=== PATIENT | female | born 1980 | race Caucasian/White ===

== ENCOUNTER 2016-06-19 15:34 | Emergency (ER) | payer OTHER ==
--- NOTE | ~2016-06-19 | ER ---
PATIENT'S NAME: KARINA [facility] AGE: 35 Y [address] ROOM: [place] [address] LOCATION: ED ADMIT DATE: 06/19/2016 ER/Outpatient Report DISCHARGE DATE: 06/19/2016 FAMILY PHYSICIAN: Physician, Unknown ATTENDING PHYSICIAN: Jane Mittal Time of Arrival: 1534 hours. Time of Evaluation: 1608 hours. IDENTIFICATION: A 35-year-old female. CHIEF COMPLAINT: Back pain. HISTORY OF PRESENT ILLNESS: The patient this morning when she woke up, developed some pain across her low back, worse with movement and bending. 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 She has a prior history of lumbar degenerative disk disease, and had a lumbar decompression and fusion per Dr. Marie in August of 2012. Pain radiates a little bit down the posterior right leg, just about the mid thigh level. No bowel or bladder problems other than she said she has had some increased frequency of urination. PAST MEDICAL HISTORY: ALLERGIES: KEFLEX, PERCOCET, AND LEXAPRO. CURRENT MEDICATIONS: 1. Adderall XR. 2. Ibuprofen. 3. Xanax. MEDICAL PROBLEMS: Lupus, ADHD, OCD, and lumbar degenerative disk disease. PRIOR SURGERIES: L4-L5 fusion and lumbar decompression, cholecystectomy, and tubal ligation. 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 The patient is . Tobacco use, 1 pack per day for 16 years. Alcohol use, denies. Drug use, denies. PATIENT'S NAME: [facility]ARINA [facility] AGE: 35 Y [address] ROOM: [place] [address] LOCATION: ED ADMIT DATE: 06/19/2016 ER/Outpatient Report DISCHARGE DATE: 06/19/2016 FAMILY PHYSICIAN: Physician, Unknown ATTENDING PHYSICIAN: Jane Mittal Her primary care physician is in [place]. REVIEW OF SYSTEMS: All systems reviewed and negative other than what is noted in the HPI. FAMILY HISTORY: No pertinent family history. PHYSICAL EXAMINATION: VITAL SIGNS: Height 5 feet 6 inches, weight 89.5 kg. Blood pressure 124/82, pulse 99, respirations 16, temperature 98, and saturations 100% on room air. GENERAL: A 35-year-old female, in mild distress. Pain 7/10. HEENT: Unremarkable. LUNGS: Clear to auscultation. HEART: Regular rate and rhythm. ABDOMEN: Soft, nondistended, nontender. SKIN: [place], warm, and dry. No lesions or rashes noted. NEURO: The patient is alert and oriented x4. Cranial nerves 2 through 12 grossly intact. Motor strength 5/5 throughout. Sensation is intact to light touch. BACK: Tender to palpation in the right lumbar paraspinal muscles. No erythema. She does have some palpable muscle spasm. Decreased range of motion secondary to pain. Equivocal straight leg raise bilaterally. With straight leg raise, she does complain of a little bit of pain in her low back on the right side. EMERGENCY DEPARTMENT COURSE: The patient was given Valium 2 mg orally. Hemoglobin 15.2, hematocrit 45.3, platelets 308, white count 12 with normal differential. Sedimentation rate 5. CRP 0.40. Chemistry panel is unremarkable. Her creatinine is normal. GFR is greater than 60. UA negative and urine hCG negative. The patient was given Toradol 60 mg IM. Her pain improved from a 7 to a 4. IMPRESSION: Acute low back pain. PLAN: No lifting. Rest. Tylenol or ibuprofen for pain. Ice or heat. Valium 2 mg 1/2 to 1 tablet q.8 hours p.r.n. spasm, dispensed 10 with 0 refills, and follow up with Dr. Marie in 1 to 3 days, follow up sooner if any problems or concerns. I did give her a note for work to remain off work until 06/23 and then to return as tolerates. The patient understands and agrees, and all questions have been answered. PATIENT'S NAME: GEOVANNA COLLINS [facility] AGE: 35 Y [address] ROOM: [place] [address] LOCATION: ED ADMIT DATE: 06/19/2016 ER/Outpatient Report DISCHARGE DATE: 06/19/2016 FAMILY PHYSICIAN: Physician, Unknown ATTENDING PHYSICIAN: Jane Mittal MD RENATO JO/jolie /[id number] d: 06/19/16 232 t: 07/03/16 0701, OUTPATIENT REPORT
[2016-06-19 16:42] LABS: BILIRUBIN URINE NEGATIVE (NEGATIVE); BLOOD URINE NEGATIVE /UL (NEGATIVE); GLUCOSE URINE NEGATIVE (NEGATIVE); KETONE URINE NEGATIVE (NEGATIVE); LEUKOCYTES URINE NEGATIVE /UL (NEGATIVE); NITRITE URINE NEGATIVE (NEGATIVE); PROTEIN URINE NEGATIVE (NEGATIVE); SPEC GRAVITY URINE 1.015 (1.003-1.035); UROBILINOGEN URINE NORMAL (NORMAL)
[2016-06-19 16:43] LABS: COLOR URINE YELLOW (YELLOW); TURBIDITY URINE CLEAR (CLEAR)
[2016-06-19 16:48] LABS: BASOPHIL # 0.1 K/uL (0.0-0.2); BASOPHIL % 0.5 %; EOSINOPHIL # 0.4 K/uL (0.0-0.5); EOSINOPHIL % 3.3 %; HEMATOCRIT 45.3 % (33.0-46.0); HEMOGLOBIN 15.2 g/dL (11.0-15.0); IMMATURE GRANULOCYTE # 0.1 K/uL (0.0-0.3); IMMATURE GRANULOCYTE % 0.4 %; LYMPHOCYTE # 4.6 K/uL (0.8-4.0); LYMPHOCYTE % 38.6 %; MCH 29.6 pg (27.0-34.0); MCHC 33.6 gm/dL (32.0-36.5); MCV 88.3 fl (83.0-98.0); MONOCYTE # 0.8 K/uL (0.0-1.0); MONOCYTE % 6.3 %; MPV 11.1 fl (9.4-12.4); NEUTROPHIL # (ANC) 6.1 K/uL (1.8-7.8); NEUTROPHIL % 50.9 %; NRBC % 0 /100WBC (0-0.00); PLATELET COUNT 308 K/uL (150-450); RBC 5.13 M/uL (3.50-5.50); RDW-CV 12.9 % (11.9-14.6)
[2016-06-19 17:00] LABS: ALBUMIN 4.1 gm/dL (3.5-5.0); ALK PHOS 85 IU/L (33-138); ALT 24 IU/L (12-78); ANION GAP 11.1 (10.0-19.0); AST 16 IU/L (10-40); BLOOD UREA NITROGEN 8 mg/dL (6-24); CALCIUM 9.2 mg/dL (8.5-10.5); CHLORIDE 104 mMol/L (96-110); CO2 26 mMol/L (22-32); CREATININE 0.7 mg/dL (0.5-1.1); ESTIMATED GFR (MDRD EQUATION) > 60; POTASSIUM 4.1 mMol/L (3.7-5.1); SODIUM 137 mMol/L (135-145); TOTAL BILIRUBIN 0.3 mg/dL (0.0-1.5); TOTAL PROTEIN 7.7 g/dL (6.0-8.4)
== END 2016-06-19 17:38 | disposition disaster alternative care site (69) ==
LOC: GMED 15:34
PROVIDERS: Family Medicine
DX: M54.5 Low back pain (principal); F90.9 Attention-deficit hyperactivity disorder, unspecified type; F42.9 Obsessive-compulsive disorder, unspecified; F17.210 Nicotine dependence, cigarettes, uncomplicated; Z88.1 Allergy status to other antibiotic agents; Z88.5 Allergy status to narcotic agent; Z88.8 Allergy status to other drugs, medicaments and biological substances; Z79.899 Other long term (current) drug therapy; Z98.1 Arthrodesis status; Z90.49 Acquired absence of other specified parts of digestive tract
CPT/HCPCS: J1885

== ENCOUNTER 2016-06-21 21:08 | Emergency (ER) | payer OTHER ==
--- NOTE | ~2016-06-21 | ER ---
PATIENT'S NAME: GEOVANNA COLLINS [facility] AGE: 35 Y [address] ROOM: [place] [address] LOCATION: [facility] ADMIT DATE: 06/21/2016 ER/Outpatient Report DISCHARGE DATE: 06/21/2016 FAMILY PHYSICIAN: Physician, Unknown ATTENDING PHYSICIAN: Paolo Gonzales Admission date and time documented in medical record. I saw the patient at 2155 hours. CHIEF COMPLAINT: Low back pain, right greater than left. HISTORY OF PRESENT ILLNESS: The patient is a 35-year-old female, who went to bed 5-6 days ago, woke up the next morning with low back pain, mainly on the right side. Had a little bit of sciatic into the right leg. She had previous laminectomy and fusion involving L4-L5. Denies any urinary symptomatology other than some frequency. Her urine was clear 3-4 days ago. No bowel dysfunction. No chest pain or shortness of breath. No recent fall or trauma. No cold, cough, flus, fever, chills, sweats. No abdominal pain, nausea, vomiting. HOME MEDICATIONS: See attached medication list. ALLERGIES: 1. LEXAPRO. 2. KEFLEX. 3. PERCOCET. SOCIAL HISTORY: The patient smokes a pack of cigarettes per day and nondrinker. SIGNIFICANT PAST MEDICAL HISTORY: 1. ADHD. 2. OCD. 3. Lumbar degenerative disk disease. 4. Lupus. 5. Tobacco abuse. OPERATIONS: 1. L4-L5 fusion with lumbar decompression. 2. Cholecystectomy. 3. Tubal ligation. REVIEW OF SYSTEMS: PATIENT'S NAME: GEOVANNA COLLINS [facility] AGE: 35 Y [address] ROOM: [place] [address] LOCATION: [facility] ADMIT DATE: 06/21/2016 ER/Outpatient Report DISCHARGE DATE: 06/21/2016 FAMILY PHYSICIAN: Physician, Unknown ATTENDING PHYSICIAN: Paolo Gonzales All systems reviewed by me are negative with the exception of those discussed in the history of present illness. PHYSICAL EXAMINATION: VITAL SIGNS: Temperature 97.5 tympanic, pulse 95, respirations 16, blood pressure 125/58, O2 saturation on room air 100%. ABDOMEN: On examination, abdomen is soft, nondistended, nontender. Good bowel tones. No organomegaly or abnormal mass palpable. Pelvis stable and nontender. BACK: The patient has tenderness on the right paraspinal muscles around L3-L4 area. No buttock pain in the sciatic notch. Straight leg raising negative. NEUROVASCULAR: Intact. Pulse intact. Strength intact. DIAGNOSTIC DATA: Plain film of the lumbar spine showed no disruption of the screws or plate. No subluxation. No acute fracture. We will review all plain films with the radiologist. IMPRESSION: Low back pain right greater than left, etiology uncertain. PLAN: The patient is to continue her Valium. We will start her on Medrol Dosepak take as directed and physical therapy if needed. She is going to follow up with Dr. Marie, critical care nurse specialist sometime this coming week. I encouraged her to proceed in that direction. MD EMMIE FELIZ/modl /[id number] d: 06/21/16 2351 t: 06/22/16 1813, OUTPATIENT REPORT
== END 2016-06-21 22:33 | disposition disaster alternative care site (69) ==
LOC: GMED 21:08
DX: M54.5 Low back pain (principal); F17.210 Nicotine dependence, cigarettes, uncomplicated; Z88.8 Allergy status to other drugs, medicaments and biological substances; Z90.49 Acquired absence of other specified parts of digestive tract; Z98.51 Tubal ligation status

== ENCOUNTER 2016-09-22 18:19 | Emergency (ER) | payer OTHER ==
--- NOTE | ~2016-09-22 | ER ---
PATIENT'S NAME: GEOVANNA COLLINS [facility] AGE: 36 Y [address] ROOM: [place] [address] LOCATION: ED ADMIT DATE: 09/22/2016 ER/Outpatient Report DISCHARGE DATE: 09/22/2016 FAMILY PHYSICIAN: PHYSICIAN, NO ATTENDING PHYSICIAN: Lowell Lizarraga CHIEF COMPLAINT: Chest pain. HISTORY OF PRESENT ILLNESS: The patient presents for evaluation of chest pain. The pain started around 2:00 or 2:30. It started a kind of on the left side, radiated up through her shoulder, and it is now a kind of in her arm. It is described as a dull pressure. This does not feel like her prior reflux. She states that she is a smoker and has an extensive family history. She also has lupus and anxiety issues. 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 She has not had any significant changes to her weight or sleeping recently but has noted some bloating. She denies any other issues at this time. She states that she thinks she is confused because she is just having some trouble recalling things that she feels like it should be easier for her. No other acute concerns. PAST MEDICAL HISTORY: Documented on the record and reviewed by me. SOCIAL HISTORY: Documented on the record and reviewed by me. MEDICATIONS: Documented on the record and reviewed by me. ALLERGIES: DOCUMENTED ON THE RECORD AND REVIEWED BY ME. REVIEW OF SYSTEMS: All systems reviewed and negative except as noted in the HPI. PHYSICAL EXAMINATION: VITAL SIGNS: Blood pressure 139/63, pulse 100, respiratory rate is 20, temperature 98.2, SpO2 is 100% on room air. Pain is 4/10. GENERAL: An age-appropriate female. No obvious pain or distress. Resting comfortably upright on the exam table. NEURO: The patient is awake and alert. GCS is 15. No focal deficits. No asymmetry. Normal cognition. PATIENT'S NAME: GEOVANNA COLLINS [facility] AGE: 36 Y [address] ROOM: [place] [address] LOCATION: [facility] ADMIT DATE: 09/22/2016 ER/Outpatient Report DISCHARGE DATE: 09/22/2016 FAMILY PHYSICIAN: PHYSICIAN, NO ATTENDING PHYSICIAN: Lowell Lizarraga HEENT: Normocephalic, atraumatic. Eyes are PERRL. Oropharynx is clear. NECK: Supple. Trachea is midline. CHEST/HEART: Regular rate and rhythm with no murmurs. LUNGS: Clear to auscultation bilateral with no rhonchi, wheezes, or rales. ABDOMEN: Soft, nontender, and nondistended. No rebound. No guarding. No tenderness. Bowel sounds are normal. BACK: Normal to inspection and palpation. EXTREMITIES: Warm and well perfused. No obvious abnormalities. SKIN: Clean, dry, and intact. No erythema. LABORATORY DATA AND X-RAYS: Chest x-ray is unremarkable per my review. EKG reveals sinus tachycardia, rate of 100 with otherwise normal intervals and axis. No signs of acute ischemia. Grossly unchanged morphologies compared to prior EKG from 06/25/2012. HCG below threshold. CMS without appreciable abnormality. Magnesium 2.1. CPK, CK-MB, and troponin all within appropriate threshold. CBC with slightly elevated white count of 12.7, otherwise unremarkable. INR is below 1. D-dimer 0.38. IMPRESSION: Atypical chest pain. EMERGENCY DEPARTMENT COURSE: The patient was seen and evaluated. Cardiac and PE evaluation was undertaken. X-ray reviewed and excludes pneumonia, pneumothorax as a cause. Not consistent with dissection or Boerhaave syndrome. She was given a GI cocktail, which did not help. Two nitroglycerin did improve her pain to barely noticeable. Her blood pressure was a little bit less, so she was given morphine and Zofran, which helped completely eliminate her pain. I offered a 2-hour rule out to help ensure extremely low risk of acute coronary event. She and her discussed this and have declined at this time. They will return immediately if there is anything worsening. Recommend that the patient have the next 24 hours off to just kind of relax before she resumes her daily routine. She will need to follow up with her primary care provider preferably within the next 14 days for re-evaluation. All questions answered. The patient discharged in good condition. MD CRISTIANA LACY/jolie PATIENT'S NAME: GEOVANNA COLLINS [facility] AGE: 36 Y [address] ROOM: [place] [address] LOCATION: [facility] ADMIT DATE: 09/22/2016 ER/Outpatient Report DISCHARGE DATE: 09/22/2016 FAMILY PHYSICIAN: YANELI JONES ATTENDING PHYSICIAN: Lowell Lizarraga /[id number] d: 09/23/16423 t: 09/23/16 1934, OUTPATIENT REPORT
[2016-09-22 18:38] LABS: BASOPHIL # 0.1 K/uL (0.0-0.2); BASOPHIL % 0.6 %; EOSINOPHIL # 0.4 K/uL (0.0-0.5); EOSINOPHIL % 3.5 %; HEMATOCRIT 41.6 % (33.0-46.0); HEMOGLOBIN 13.9 g/dL (11.0-15.0); IMMATURE GRANULOCYTE % 0.3 %; LYMPHOCYTE # 3.8 K/uL (0.8-4.0); LYMPHOCYTE % 30.3 %; MCH 29.8 pg (27.0-34.0); MCHC 33.4 gm/dL (32.0-36.5); MCV 89.3 fl (83.0-98.0); MONOCYTE # 1.1 K/uL (0.0-1.0); MONOCYTE % 8.7 %; MPV 10.7 fl (9.4-12.4); NEUTROPHIL # (ANC) 7.2 K/uL (1.8-7.8); NEUTROPHIL % 56.6 %; NRBC % 0 /100WBC (0-0.00); PLATELET COUNT 271 K/uL (150-450); RBC 4.66 M/uL (3.50-5.50); RDW-CV 12.8 % (11.9-14.6); WBC 12.7 K/uL (4.0-11.0)
[2016-09-22 18:47] LABS: INR - (THERAPEUTIC) 0.99 (0.92-1.07); PROTIME 10.4 SECONDS (9.8-11.4); PTT 26 SECONDS (25-32)
[2016-09-22 18:59] LABS: ALBUMIN 3.6 gm/dL (3.5-5.0); ALK PHOS 78 IU/L (33-138); ALT 21 IU/L (12-78); ANION GAP 10.8 (10.0-19.0); AST 10 IU/L (10-40); BLOOD UREA NITROGEN 8 mg/dL (6-24); CALCIUM 8.6 mg/dL (8.5-10.5); CHLORIDE 109 mMol/L (96-110); CO2 25 mMol/L (22-32); CPK 42 IU/L (21-215); CREATININE 0.7 mg/dL (0.5-1.1); ESTIMATED GFR (MDRD EQUATION) > 60; MAGNESIUM 2.1 mg/dL (1.8-2.6); POTASSIUM 3.8 mMol/L (3.7-5.1); SODIUM 141 mMol/L (135-145); TOTAL BILIRUBIN 0.3 mg/dL (0.0-1.5)
== END 2016-09-22 20:45 | disposition disaster alternative care site (69) ==
LOC: GMED 18:19
PROVIDERS: Emergency Medicine
DX: R07.89 Other chest pain (principal); F32.9 Major depressive disorder, single episode, unspecified; F90.9 Attention-deficit hyperactivity disorder, unspecified type; Z79.899 Other long term (current) drug therapy; Z88.8 Allergy status to other drugs, medicaments and biological substances
CPT/HCPCS: J2270; J2405

== ENCOUNTER 2016-11-09 07:44 | Emergency (ER) | payer OTHER ==
--- NOTE | ~2016-11-09 | ER ---
PATIENT'S NAME: KARINA [facility] AGE: 36 Y [address] ROOM: [place] [address] LOCATION: [facility] ADMIT DATE: 11/09/2016 ER/Outpatient Report DISCHARGE DATE: 11/09/2016 FAMILY PHYSICIAN: PHYSICIAN, NO ATTENDING PHYSICIAN: Jane Mittal Time of Arrival: 0704 hours. Time of Evaluation/Seen: 0759 hours. IDENTIFICATION: A 36-year-old female. CHIEF COMPLAINT: Abdomen and leg swelling. HISTORY OF PRESENT ILLNESS: The patient said that really her symptoms have been since August, started with her legs and ankles feeling swollen, left greater than right, but for the past 2 weeks has noticed increasing abdominal girth, fatigue. She was here in August with chest pain. Everything at that time was evaluated as normal, but she has not followed up with her primary care physician. She continues to have some intermittent chest pain. PAST MEDICAL HISTORY: ALLERGIES: KEFLEX, PERCOCET, AND CELEXA. CURRENT MEDICATIONS: 1. Adderall XR 30 mg daily. 2. Xanax t.i.d. and p.r.n. MEDICAL PROBLEMS: 1. ADHD. 2. OCD. 3. Anxiety. 4. Endometriosis. 5. Lupus. PAST SURGICAL HISTORY: Prior Surgeries: 1. Tubal ligation. 2. Cholecystectomy. 3. section x4. 4. Spinal fusion. PATIENT'S NAME: KARINA [facility] AGE: 36 Y [address] ROOM: [place] [address] LOCATION: [facility] ADMIT DATE: 11/09/2016 ER/Outpatient Report DISCHARGE DATE: 11/09/2016 FAMILY PHYSICIAN: PHYSICIAN, NO ATTENDING PHYSICIAN: Jane Mittal SOCIAL HISTORY: The patient lives here in [place]. 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 Her primary care physician is Preeti Stuart PA-C in [place]. Tobacco use, 1 pack per day. Alcohol use, occasional. Drug use, denies. FAMILY HISTORY: Mother secondary to CHF, diabetes, and "hyperkinesis" at age 54. Father with hyperlipidemia. REVIEW OF SYSTEMS: The patient has no fever, but she has had "chills." She has had intermittent headache, but she has a history of headaches and that is not unusual for her. She does not know if she has had any weight change or not. She said she does normally weigh herself. She has had some "really bad neck pain on Thursday," no pain today. She had chest pain 2 to 3 times per week, left-sided, described as a tightening pressure, and last anywhere from half an hour to all day. No cough. No chest pain today. She does have shortness of breath when she has a chest pain. No dyspnea on exertion. No orthopnea. She has had some left-sided abdominal pain and her abdomen, she states "it's hard." She has had some burning epigastric pain "every morning." She has had nausea, rare vomiting. No diarrhea. Last bowel movement was this morning. She denies constipation. No blood in her stools. No dark, tarry, or black stools. No dysuria. No increased frequency of urination. OB HISTORY: She is a G5, P4 spontaneous, and Ab1. PHYSICAL EXAMINATION: VITAL SIGNS: Height 5 feet 3 inches and weight 89 kg. Blood pressure 160/95, pulse 83, respiratory rate 16, temperature 97.9, and saturations 99% on room air. GENERAL: A 36-year-old female, in no acute distress. HEENT: Head; normocephalic and atraumatic. Ears; TMs translucent in both ears. Eyes; pupils equal and reactive to light and accommodation. Extraocular movements intact. Nose; mucosa pink. No lesions. Mouth; no lesions. Pharynx, benign. NECK: Supple. No lymphadenopathy. LUNGS: Clear to auscultation. HEART: Regular rate and rhythm. ABDOMEN: Soft, nondistended, and minimally tender to deep palpation in the left abdomen. No rebound or guarding. No CVA tenderness. SKIN: [place], warm, and dry. No lesions or rashes noted. NEUROLOGIC: The patient is alert and oriented x4. Cranial nerves 2 through 12 grossly intact. Motor strength 5/5 throughout. Sensation is intact to PATIENT'S NAME: GEOVANNA COLLINS [facility] AGE: 36 Y [address] ROOM: [place] [address] LOCATION: ED ADMIT DATE: 11/09/2016 ER/Outpatient Report DISCHARGE DATE: 11/09/2016 FAMILY PHYSICIAN: PHYSICIAN, NO ATTENDING PHYSICIAN: Jane Mittal light touch. No lower extremity edema. No calf tenderness. LABORATORY DATA AND IMAGING STUDIES: EKG; normal sinus rhythm at 77 beats per minute. No acute ST elevation or depression. No change when compared to prior EKG on 09/22/2016. UA; unremarkable. Urine-hCG, negative. Chemistry panel and cardiac enzymes are all negative. ProBNP 37. D-dimer 0.32. CBC; hemoglobin 15.5, hematocrit 45.7, platelets 279,000, and white count 13.2 with a normal differential. INR 0.99. One-view chest x-ray, no acute process. Pending Radiology over-read. CT scan of abdomen and pelvis with no contrast; relatively large volume of colonic fecal matter, constipation is in the differential. Otherwise, no acute findings noted. IMPRESSION AND PLAN: 1. Increasing abdominal girth, negative CT scan. 2. Lower extremity swelling, clinically. No evidence of swelling today. D- dimer is negative and proBNP is normal. Recommend elevating legs. 3. Abdominal discomfort with constipation on CT scan. 4. Stool softener, Colace 100 mg b.i.d. and MiraLAX 17 g daily. 5. Push fluids and follow up with primary care next week. Follow up sooner if any problems or concerns. The patient understands and agrees, and all questions have been answered. I am adding a TSH to her lab, but the patient has already been discharged, so will follow up with her if it is abnormal. JANE MITTAL MD CAR/modl /[id number] d: 11/09/16 1430 t: 11/09/16 1513, OUTPATIENT REPORT
[2016-11-09 08:29] LABS: BILIRUBIN URINE NEGATIVE (NEGATIVE); BLOOD URINE NEGATIVE /UL (NEGATIVE); COLOR URINE YELLOW (YELLOW); GLUCOSE URINE NEGATIVE (NEGATIVE); KETONE URINE NEGATIVE (NEGATIVE); LEUKOCYTES URINE NEGATIVE /UL (NEGATIVE); NITRITE URINE NEGATIVE (NEGATIVE); PROTEIN URINE NEGATIVE (NEGATIVE); SPEC GRAVITY URINE 1.005 (1.003-1.035); TURBIDITY URINE CLEAR (CLEAR); UROBILINOGEN URINE NORMAL (NORMAL)
[2016-11-09 08:32] LABS: BASOPHIL # 0.1 K/uL (0.0-0.2); BASOPHIL % 0.7 %; EOSINOPHIL # 0.5 K/uL (0.0-0.5); EOSINOPHIL % 3.8 %; HEMATOCRIT 45.7 % (33.0-46.0); HEMOGLOBIN 15.5 g/dL (11.0-15.0); IMMATURE GRANULOCYTE # 0.1 K/uL (0.0-0.3); IMMATURE GRANULOCYTE % 0.5 %; LYMPHOCYTE # 3.4 K/uL (0.8-4.0); LYMPHOCYTE % 25.6 %; MCH 30.7 pg (27.0-34.0); MCHC 33.9 gm/dL (32.0-36.5); MCV 90.5 fl (83.0-98.0); MONOCYTE % 7.8 %; MPV 10.9 fl (9.4-12.4); NEUTROPHIL # (ANC) 8.1 K/uL (1.8-7.8); NEUTROPHIL % 61.6 %; NRBC % 0 /100WBC (0-0.00); PLATELET COUNT 279 K/uL (150-450); RBC 5.05 M/uL (3.50-5.50); RDW-CV 13.3 % (11.9-14.6); WBC 13.2 K/uL (4.0-11.0)
[2016-11-09 08:41] LABS: INR - (THERAPEUTIC) 0.99 (0.92-1.07); PROTIME 10.4 SECONDS (9.8-11.4); PTT 27 SECONDS (25-32)
[2016-11-09 08:53] LABS: ALBUMIN 3.8 gm/dL (3.5-5.0); ALK PHOS 80 IU/L (33-138); ALT 32 IU/L (12-78); ANION GAP 9.7 (10.0-19.0); AST 21 IU/L (10-40); BLOOD UREA NITROGEN 10 mg/dL (6-24); CALCIUM 8.8 mg/dL (8.5-10.5); CHLORIDE 108 mMol/L (96-110); CO2 25 mMol/L (22-32); CPK 49 IU/L (21-215); CREATININE 0.7 mg/dL (0.5-1.1); MAGNESIUM 2.1 mg/dL (1.8-2.6); POTASSIUM 3.7 mMol/L (3.7-5.1); SODIUM 139 mMol/L (135-145); TOTAL PROTEIN 7.6 g/dL (6.0-8.4)
[2016-11-09 08:54] LABS: TOTAL BILIRUBIN 0.4 mg/dL (0.0-1.5)
== END 2016-11-09 10:29 | disposition disaster alternative care site (69) ==
LOC: GMED 07:44
PROVIDERS: Family Medicine
DX: K59.00 Constipation, unspecified (principal); M79.89 Other specified soft tissue disorders; F41.9 Anxiety disorder, unspecified; F42.9 Obsessive-compulsive disorder, unspecified; F90.9 Attention-deficit hyperactivity disorder, unspecified type; N80.9 Endometriosis, unspecified; F17.210 Nicotine dependence, cigarettes, uncomplicated; Z88.1 Allergy status to other antibiotic agents; Z88.5 Allergy status to narcotic agent; Z88.8 Allergy status to other drugs, medicaments and biological substances; Z98.51 Tubal ligation status; Z90.49 Acquired absence of other specified parts of digestive tract; Z98.890 Other specified postprocedural states; Z79.899 Other long term (current) drug therapy